=== PATIENT | male | born 1990 | race Caucasian/White ===

== ENCOUNTER 2023-12-04 23:35 | Emergency (ER) | payer OTHER, SELFPAY ==
--- NOTE | 2023-12-04 | RAD_ITS ---
INDICATION: ANKLE INJURY EXAMINATION/TECHNIQUE: X-RAY - RIGHT XR Ankle Min 3 Views COMPARISON: None. FINDINGS: SOFT TISSUES: Unremarkable. BONES/JOINTS: No fracture or dislocation. No significant degenerative changes. No erosive changes. RAD/Ankle min 3 Views IMPRESSION: No fracture or dislocation. Electronically Signed: Ajay Foote DO at 0:52 EDT ,
[2023-12-04 23:36] VITALS: BP 135/89; PULSE 100; RESP 16; TEMP 36.2; O2SAT 99; BMI 22.6
[2023-12-05] MEDS: oxyCODONE 5 MG Tablet PO (00:42)
--- NOTE | 2023-12-05 01:15 | EX.ED.DYSGE1 ---
HPI History of Present Illness Chief Complaint: Lower Extremity Injury Informant: patient and spouse/S.O. Narrative Narrative: Patient is a 33-year-old male with no significant past medical history. He states roughly 6 to 7 hours ago he was spending time with his significant other and friends out on a beach. He states he built a sand [place]. He reports that when it was time to leave he decided to knock the [place] over and as he went to kick it with his barefoot he realized that it had dried and become rockhard. He states that he injured his right foot/ankle and has been having pain swelling and difficulty walking on it since the trauma. He reports that he took [id number] medication and iced the area and stayed off of it for multiple hours but symptoms seem to be worsening and therefore he comes in for evaluation [facility] Medical History no medical history Home Medications ?Medication ?Instructions ?Recorded ?Last Taken ?Type oxycodone-acetaminophen 5 mg-325 1 tab PO Q6H PRN pain 3 days #12 12/05/23 Unknown Rx mg tablet (Percocet) tabs Allergy/AdvReac Type Severity Reaction Status Date / Time No Known Allergies Allergy Verified 12/04/23 23:38 Surgical History no surgical history Social History Smoking Status: Never smoker [facility] ED Constitutional Constitutional ED: Denies chills or fever(s) ENT ENT ED: Denies sore throat Cardiovascular Cardiovascular: Denies chest pain Respiratory/Chest Respiratory/Chest: Denies cough or dyspnea Gastrointestinal Gastrointestinal: Denies abdominal pain, diarrhea, nausea or vomiting Genitourinary Genitourinary ED: Denies dysuria Musculoskeletal Musculoskeletal: Reports other Details: Positive right foot/ankle pain Integumentary Denies Abrasions or rash Neurologic Neurologic: Denies headache(s) or paresthesias Hematologic/Lymphatic Hematologic/Lymphatic: Denies easy bleeding or easy bruising EXAM Physical Exam Const Vital Signs: 12/04/23 23:36 12/05/23 01:39 Temperature 97.2 F L 98.4 F Temperature Source Temporal Pulse Rate 100 71 Respiratory Rate 16 15 Blood Pressure 135/89 H 120/80 Blood Pressure Mean 104 93 Pulse Ox 99 99 Oxygen Delivery Method Room Air Positive well nourished and well developed General Appearance ED: well developed HEENT HEENT Narrative: Normocephalic atraumatic Eyes PERRL and EOMs intact bilaterally Neck supple Resp normal respiratory effort and clear to auscultation bilaterally Cardio regular rate and regular rhythm Extremity Extremity Narrative: Right lower extremity is neurovascularly intact. There is mild soft tissue swelling and faint ecchymosis to the dorsal aspect of the foot near the talus. There is pain with palpation in the joint space near the fibular talar region. There is mild laxity with stressing of the right ankle with inversion compared to left. Achilles tendon is intact. There is no obvious bony deformity or joint effusion. No subungual hematoma. No pain with palpation of the proximal tibia. Remainder of the exam is normal Neuro oriented x3, CN's II-XII intact bilaterally and no sensory deficits noted Sensorium / Orientation: alert Psych mental status grossly normal Skin Skin Narrative: Mild soft tissue swelling with ecchymosis to the right foot as documented above MDM MDM MDM Narrative Medical decision making narrative: Patient arrived to the ER slightly hypertensive but otherwise with stable vital. He reported direct trauma to the dorsum of the right foot causing excessive plantarflexion and inversion. There is concern for fracture versus dislocation versus contusion versus ligamentous injury. An x-ray was obtained which revealed no acute finding. However on exam there is pain with palpation over the fibular talar ligament and there is increased laxity with inversion of the right ankle compared to left concerning for grade 2 sprain. Therefore patient was placed in a walking boot for stabilization and given crutches to help with weightbearing. However he is closed and neurovascularly intact and therefore there is no need for emergent podiatry consultation. Patient be given symptomatic care can follow-up with them on an outpatient basis History & Record Review Discussion w/independent historian: Patient and Significant other Radiography Diagnostic Testing: Clinical Impression(s) from Imaging Studies Ankle X-Ray 12/04/23 00:00 IMPRESSION: No fracture or dislocation. Electronically Signed: Ajay Foote DO at 0:52 EDT , Right ankle x-ray as interpreted by the emergency medicine physician reveals no acute fracture or dislocation Discharge Plan Triage Chief Complaint: Lower Extremity Injury ED Provider: Hoang Lazo Dx/Rx/DC Orders Clinical Impression: Grade 2 ankle sprain, Contusion of foot, right Instructions: ED Foot Contusion, ED Ankle Sprain (Adult) Prescriptions: New oxycodone-acetaminophen [Percocet] 5-325 mg tablet 1 tab PO Q6H PRN (Reason: pain) 3 Days Qty: 12 0RF Primary Care Provider: Care Physician,No Primary Referrals: Jaguar Ellington DPM [Med Staff - Active Staff] - Care Physician,No Primary [Primary Care Provider] - Print Language: Lithuanian Disposition Disposition: Home, Self Care Discharge Date/Time: 12/05/23 01:41
[2023-12-05 01:39] VITALS: BP 120/80; PULSE 71; RESP 15; TEMP 36.9; O2SAT 99
== END 2023-12-05 01:41 | disposition home or self-care (01) ==
PROVIDERS: Emergency Provider Emergency Medicine; Visit Provider Emergency Medicine
DX: S93.401A Sprain of unspecified ligament of right ankle, initial encounter (principal); S90.31XA Contusion of right foot, initial encounter; X58.XXXA Exposure to other specified factors, initial encounter
CPT/HCPCS: 73610; 99284